=== PATIENT | female | born 1955 | race Caucasian/White ===

== ENCOUNTER → 2023-03-30 08:53 | Outpatient (BNVA) | payer OTHER, MEDICARE, MEDICAID, SELFPAY | PROVIDERS: Family Provider Family Medicine; PCP Family Medicine; Visit Provider Family Medicine | DX: R00.2 Palpitations (principal); I10 Essential (primary) hypertension; Z76.89 Persons encountering health services in other specified circumstances; Z13.6 Encounter for screening for cardiovascular disorders | CPT/HCPCS: 80053; 80061; 84443; 85025 ==